=== PATIENT | female | born 1965 | race Hispanic/Latino ===

== ENCOUNTER 2021-04-12 09:38 | Observation (INO) | payer BC ==
[2021-04-08 12:08] LABS: BASOPHILS % (AUTO) 0.8 % (0.0-5.0); EOSINOPHILS % (AUTO) 2.2 % (0.0-8.0); HEMATOCRIT 42.8 % (36-48); LYMPHOCYTES % (AUTO) 37.1 % (21.0-51.0); MEAN CORPUSCULAR HEMOGLOBIN 30.5 pg (27.0-33.0); MEAN CORPUSCULAR HGB CONC 32.2 g/dL (32.0-36.0); MEAN CORPUSCULAR VOLUME 94.5 fL (79-99); MONOCYTES % (AUTO) 8.4 % (3.0-13.0); NEUTROPHILS % (AUTO) 51.2 % (40.0-77.0); PLATELET COUNT (AUTO) 265 K/uL (130-400); RED BLOOD CELL COUNT(AUTO) 4.53 MIL/uL (4.00-5.50); RED CELL DISTRIBUTION WIDTH 12.8 % (11.0-15.5)
[2021-04-08 12:17] LABS: CREATININE 0.5 mg/dL (0.5-1.5); POTASSIUM 4.2 mmol/L (3.5-5.1)
[2021-04-11 13:07] VITALS: BP 123/60
[~2021-04-12] VITALS: Ht 157.5 cm; Wt 78.5 kg
[2021-04-12] VITALS (23 sets, daily range): BP systolic 88–116; BP diastolic 42–75
[~2021-04-12 09:38] MED LIST: 0.9% NACL 500ML IV.SOLN 500 ML IV SCH; CEFAZOLIN SODIUM 1 GM VIAL IVP SCH; LEVO100C4 PO
[2021-04-12] MEDS ORDERED: 0.9%NACL 1000ML 1,000 ML IV ONE (10:43)
[2021-04-12] MEDS ORDERED: ESMOLOL HCL 10 MG/ML 10 ML VIAL ONE (13:15)
[2021-04-12] MEDS ORDERED: HYDROMORPHONE 1 MG INJ ONE (13:17)
[2021-04-12] MEDS ORDERED: MIDAZOLAM HCL 1 MG/ML 2ML VIAL ONE (13:19)
[2021-04-12] MEDS ORDERED: PROPOFOL 10 MG/ML 20ML VIAL IV ONE (13:19)
[2021-04-12] MEDS ORDERED: LIDOCAINE PF 100MG/5ML (2%) SYRINGE 5ML ONE (13:19)
[2021-04-12] MEDS ORDERED: ROCURONIUM 10MG/1ML SYR 10 MG/ML ML ONE (13:19)
[2021-04-12] MEDS ORDERED: FENTANYL CITRATE PF 50 MCG/1 ML 2ML VIAL ONE (13:20)
[2021-04-12] MEDS ORDERED: ONDANSETRON 4MG INJ ONE (14:34)
[2021-04-12] MEDS ORDERED: MEPERIDINE-PF 25 MG/ML SYG ONE (16:20)
[2021-04-12] MEDS ORDERED: ONDANSETRON 4MG INJ IVP PRN (18:30)
[2021-04-12] MEDS ORDERED: KETOROLAC 30MG VIAL (30MG/ML) IV PRN (18:30)
[2021-04-12] MEDS ORDERED: MORPHINE 4 MG SYG IVP PRN (18:30)
[2021-04-12] MEDS: CEFAZOLIN SODIUM 1 GM VIAL IVP SCH (18:43)
[2021-04-13 00:01] VITALS: BP 107/67
[2021-04-13] MEDS: CEFAZOLIN SODIUM 1 GM VIAL IVP SCH ×3 (01:55→18:39)
[2021-04-13 04:15] LABS: HEMATOCRIT 35.2 % (36-48); LYMPHOCYTES % (AUTO) 7.6 % (21.0-51.0); MEAN CORPUSCULAR HEMOGLOBIN 29.5 pg (27.0-33.0); MEAN CORPUSCULAR HGB CONC 31.5 g/dL (32.0-36.0); MEAN CORPUSCULAR VOLUME 93.6 fL (79-99); MONOCYTES % (AUTO) 7.1 % (3.0-13.0); NEUTROPHILS % (AUTO) 84.8 % (40.0-77.0); PLATELET COUNT (AUTO) 218 K/uL (130-400); RED BLOOD CELL COUNT(AUTO) 3.76 MIL/uL (4.00-5.50); RED CELL DISTRIBUTION WIDTH 12.5 % (11.0-15.5); WHITE BLOOD COUNT (AUTO) 14.3 K/uL (4.8-10.8)
[2021-04-13 04:25] LABS: CREATININE 0.6 mg/dL (0.5-1.5); POTASSIUM 4.1 mmol/L (3.5-5.1)
[2021-04-13 04:36] VITALS: BP 110/52
[2021-04-13 08:00] VITALS: BP 128/86
[2021-04-13 12:00] VITALS: BP 108/58
[2021-04-13] MEDS ORDERED: IBUPROFEN 800 MG TAB PO PRN (14:00)
== END 2021-04-13 19:45 | disposition home or self-care (01) ==
LOC: DAH 09:38 → DAHIP 09:39 → DAH 09:39 → 4AH 17:21
PROVIDERS: ADMIT Surgery; ATTEND Surgery
DX: M79.3 Panniculitis, unspecified (principal); Z20.822 Contact with and (suspected) exposure to COVID-19; E78.00 Pure hypercholesterolemia, unspecified; I10 Essential (primary) hypertension; M19.90 Unspecified osteoarthritis, unspecified site; E78.5 Hyperlipidemia, unspecified; E11.9 Type 2 diabetes mellitus without complications; Z79.899 Other long term (current) drug therapy
CPT/HCPCS: 15830; 36415 ×2; 80048 ×2; 82948 ×5; 85025 ×2; 87635; 96374; 96375; 96376; A4215 ×2; A4221; A4222; A4223; A4452; A4510; A4600; A4649; A4663; A6260; C9803; G0378 ×27; J0690 ×5; J1170; J1885; J2001; J2175; J2250; J2405; J2704; J3010; J3490; J7030 ×2; J2270